=== PATIENT | male | born 2000 | race Caucasian/White ===

== ENCOUNTER 2019-01-22 06:19 | Emergency (ER) | payer OTHER ==
[~2019-01-22] VITALS: Ht 177.8 cm; Wt 72.7 kg
--- NOTE | 2019-01-22 07:48 | REPVR ---
PROCEDURE INFORMATION: Exam: US Duplex Left Lower Extremity Veins, Limited Exam date and time: 01/22/2019 7:23 AM Clinical history: 18 years old, male; Pain; Leg, lower; Prior surgery; Surgery date: <1 month; Surgery type: 2 1/2 weeks S/P left meniscus repair; Additional info: Pain, swelling, bruising-post op TECHNIQUE: Imaging protocol: Real-time Duplex ultrasound of the Left Lower Extremity with 2-D adair scale, color Doppler flow and spectral waveform analysis with image documentation. Limited exam focused on the left lower extremity veins. COMPARISON: No relevant prior studies available. FINDINGS: Left deep veins: Unremarkable. The common femoral, femoral, popliteal and posterior tibial veins are patent without thrombus. Normal Doppler waveforms. Normal compressibility and/or augmentation response. 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 Left superficial veins: Unremarkable. Saphenofemoral junction is patent without thrombus. Soft tissues: There is a curvilinear plate-like George's cyst present in the medial popliteal fossa measuring 3.4 x 0.8 x 1.8 cm. IMPRESSION: 1. No evidence of deep vein thrombosis in the left lower extremity. 2. There is a curvilinear plate-like George's cyst present in the medial popliteal fossa measuring 3.4 x 0.8 x 1.8 cm. Electronically signed by: Gomez Goodman On 01/22/2019 07:48:15 AM
[2019-01-22 07:49] LABS: HEMATOCRIT 50.1 % (42.0-52.0); HEMOGLOBIN 16.1 g/dl (13.5-17.5); MEAN CORPUSCULAR HEMOGLOBIN 30.7 pg (27.0-33.0); MEAN CORPUSCULAR HGB CONC 32.1 g/dl (32.0-36.5); MEAN CORPUSCULAR VOLUME 95.4 fl (80.0-96.0); PLATELET COUNT, AUTOMATED 470 10^3/uL (150-450); RED BLOOD COUNT 5.25 10^6/uL (4.30-6.10); WHITE BLOOD COUNT 12.4 10^3/uL (4.0-10.0)
[2019-01-22 08:09] VITALS: BP 148/76
== END 2019-01-22 08:37 | disposition home or self-care (01) ==
LOC: M ED 06:19
DX: L76.22 Postprocedural hemorrhage of skin and subcutaneous tissue following other procedure (principal); F17.200 Nicotine dependence, unspecified, uncomplicated; J45.909 Unspecified asthma, uncomplicated; M71.22 Synovial cyst of popliteal space [Baker], left knee